=== PATIENT | male | born 1970 | race Caucasian/White ===

== ENCOUNTER 2020-12-24 23:31 | Emergency (ER) | payer OTHER, SELFPAY ==
[~2020-12-24] VITALS: Ht 180.3 cm; Wt 79.5 kg
[2020-12-25] MEDS ORDERED: HYDROcodone/acetaminophen 10/325mg tab PO ONE (00:35)
[2020-12-25] MEDS ORDERED: mag hydrox/Alum hydrox/simeth 30ml oral suspension PO ONE (00:35)
[2020-12-25 00:59] VITALS: BP 182/100
== END 2020-12-25 01:39 | disposition home or self-care (01) ==
LOC: ER 23:32
DX: R10.32 Left lower quadrant pain (principal); K85.90 Acute pancreatitis without necrosis or infection, unspecified
CPT/HCPCS: 99283

== ENCOUNTER 2021-08-31 16:21 | Emergency (ER) | payer MEDICAID, OTHER ==
[~2021-08-31] VITALS: Ht 180.3 cm; Wt 79.5 kg
[2021-08-31 16:52] LABS: CLARITY,URINE CLEAR (Clear); COLOR,URINE DARK YELLOW (Yellow); GLUCOSE, URINE NEGATIVE (Neg); KETONES,URINE 15 mg/dl (Neg); LEUKOCYTE ESTERASE ,URINE NEGATIVE (Neg); NITRITES, URINE NEGATIVE (Neg); OCCULT BLOOD,URINE NEGATIVE (Neg); PROTEIN,URINE TRACE mg/dl (Neg); UA COLLECTION TYPE CLN CATCH MIDSTREAM; UROBILINOGEN,URINE 0.2 E.U/dL (0.2-1.0)
[2021-08-31 16:53] LABS: BASOPHILS # (AUTO) 0.1 X10'3 (0-0.2); BASOPHILS % (AUTO) 0.7 % (0-1); EOSINOPHILS # (AUTO) 0.1 X10'3 (0-0.9); EOSINOPHILS % (AUTO) 0.6 % (0-6); HEMATOCRIT 44.3 % (42.0-52.0); HEMOGLOBIN 15.1 g/dl (14.0-17.9); LYMPHOCYTES # (AUTO) 1.7 X10'3 (1.1-4.8); LYMPHOCYTES % (AUTO) 14.4 % (21-51); MEAN CORPUSCULAR HEMOGLOBIN 32.4 PG (27.0-31.0); MEAN CORPUSCULAR HGB CONC 34.1 g/dL (33.0-36.5); MEAN CORPUSCULAR VOLUME 95.1 FL (78-98); MEAN PLATELET VOLUME 7.2 FL (7.4-10.4); MONOCYTES # (AUTO) 1.1 X10'3 (0-0.9); MONOCYTES % (AUTO) 9.6 % (2-12); NEUTROPHILS # (AUTO) 8.7 X10'3 (1.8-7.7); NEUTROPHILS % (AUTO) 74.7 % (42-75); PLATELET COUNT 273 X10'3 (140-440); RED BLOOD COUNT 4.66 X10'6 (4.70-6.10); RED CELL DISTRIBUTION WIDTH 12.7 % (11.5-14.5); WHITE BLOOD COUNT 11.7 X10'3 (4.5-11.0)
[2021-08-31 16:55] LABS: URINE AMPHETAMINE SCREEN POSITIVE (Neg); URINE BARBITUATE SCREEN NEGATIVE (Neg); URINE BENZODIAZEPINES SCREEN NEGATIVE (Neg); URINE CANNABINOID SCREEN POSITIVE (Neg); URINE COCAINE SCREEN NEGATIVE (Neg); URINE METHADONE SCREEN NEGATIVE (Neg); URINE OPIATE SCREEN NEGATIVE (Neg); URINE PHENCYCLIDINE SCREEN NEGATIVE (Neg)
[2021-08-31 16:56] LABS: BACTERIA,URINE FEW /HPF (Neg); FINE GRANULAR CAST 0-3 /LPF (NEGATIVE); HYALINE CASTS 0-3 /LPF (NEGATIVE); MUCUS STRANDS MODERATE /LPF (Neg); RBC,URINE NONE SEEN /HPF (0-2); SQUAMOUS EPITHELIAL CELL,UR FEW /LPF (FEW); WBC,URINE 0-4 /HPF (0-4)
[2021-08-31 17:02] LABS: ALANINE AMINOTRANSFERASE 46 U/L (12-78); ALBUMIN 3.8 G/DL (3.4-5.0); ALBUMIN/GLOBULIN RATIO 1.1 (1.1-1.5); ALKALINE PHOSPHATASE 94 IU/L (46-116); ANION GAP 5 (8-16); ASPARTATE AMINO TRANSFERASE 48 U/L (10-37); BILIRUBIN,TOTAL 0.4 MG/DL (0.1-1.0); BLOOD UREA NITROGEN 16 MG/DL (7-18); BUN/CREATININE RATIO 13.2 (5.4-32.0); CALCIUM 8.8 MG/DL (8.5-10.1); CHLORIDE 105 MMOL/L (99-107); CREATININE 1.21 MG/DL (0.60-1.10); GLUCOSE 110 MG/DL (70-104); POTASSIUM 3.7 MMOL/L (3.5-5.1); SODIUM 145 MMOL/L (135-145); TOTAL CARBON DIOXIDE 35.3 MMOL/L (24-32); TOTAL PROTEIN 7.3 G/DL (6.4-8.2); eGFR 63 ML/MIN
--- NOTE | 2021-08-31 18:49 | NUR ---
Pt came over from main ER to room 21, patient talking nonsensical, ex- at his side. Pt is sleeping at this time.
--- NOTE | 2021-08-31 22:13 | NUR ---
Pt appears to be sleeping.
--- NOTE | 2021-09-01 00:48 | NUR ---
pt appears to be sleeping.
--- NOTE | 2021-09-01 03:10 | NUR ---
Pt up to the bathroom, pt denies SI at this time and the voices he hears are only the ones "in which God tells me what to do" Pt states he is not on any psych medications and has only taken gabapentin but hasnt had it in awhile. States he has been smoking marijuana since he was 7 years old. He believes that people are crawling around under his house and that he will be on [employer] news. Gave pt a snack and water and went back to bed.
--- NOTE | 2021-09-01 05:36 | NUR ---
pt appears to be sleeping.
[2021-09-01] MEDS ORDERED: NO HOME MEDS (06:13)
--- NOTE | 2021-09-01 08:20 | NUR ---
PACKET FAXED TO [facility]
--- NOTE | 2021-09-01 08:30 | NUR ---
Pt. awake and sitting in bed talking to himself. Pt. ate all his breakfast and requesting more food. RN attempted to obtain COIVD swab but pt. refused. Pt. is hyperverbal and disorganized, talking at length of an underground railroad that is under his house, RN attempted to ground pt. in reality, however, pt. states, "No, I know it is true, it happened in history and it happens now".
--- NOTE | 2021-09-01 10:30 | NUR ---
Pt. speaking with [facility] at bedside. Pt. to be discharged home after safety planning.
[2021-09-01 11:10] VITALS: BP 126/76
== END 2021-09-01 10:55 | disposition home or self-care (01) ==
LOC: ER 16:22
DX: R44.0 Auditory hallucinations (principal); F15.10 Other stimulant abuse, uncomplicated
CPT/HCPCS: 36415; 80053; 80305; 81001; 85025; 99285